=== PATIENT | female | born 1990 | race American Indian/Alaskan Native ===

== ENCOUNTER 2020-10-21 17:36 | Outpatient (CLI) | payer MEDICAID ==
[2020-10-21 18:22] LABS: Bacteria,Urine 4+ /HPF (Negative); Bilirubin,Urine NEG (Negative); Blood,Urine NEG (Negative); Color,Urine Yellow (Yellow); Mucus,Urine 2+ /HPF
[2020-10-21] MEDS ORDERED: LACTATED RINGERS 500 ML IV ONE (19:05)
[2020-10-21 19:06] LABS: Hematocrit 32.6 % (30.3-42.9); Hemoglobin 10.7 gm/dl (10.1-14.3); Mean Corpuscular HGB Conc 33 % (30-34); Mean Corpuscular Volume 83 fl (79-97); Platelet Count 208 K/mm3 (140-440); Red Blood Count 3.93 M/mm3 (3.65-5.03); Red Cell Distribution Width 15.1 % (13.2-15.2)
[2020-10-21 19:28] LABS: Alanine Aminotransferase 9 units/L (7-56); Uric Acid 4.3 mg/dL (3.5-7.6)
[2020-10-21 20:00] VITALS: BP 129/73
[2020-10-21] MEDS ORDERED: ceFAZolin/Water 2 GM/20 ML 2 GM/20 ML SYRINGE IV SCH (21:00)
== END 2020-10-21 20:19 | disposition home or self-care (01) ==
LOC: APU 17:36 → TRG 17:36
PROVIDERS: ATTEND Obstetrics & Gynecology
DX: O26.893 Other specified pregnancy related conditions, third trimester (principal); R03.0 Elevated blood-pressure reading, without diagnosis of hypertension; O47.1 False labor at or after 37 completed weeks of gestation; Z3A.39 39 weeks gestation of pregnancy; Z87.891 Personal history of nicotine dependence
CPT/HCPCS: 36415; 59025; 81001; 82565; 83615; 84450; 84460; 84550; 85027; 96365; J0690; 96360

== ENCOUNTER 2020-10-23 05:33 | Inpatient (IN) | payer MEDICAID ==
[~2020-10-23 05:33] MED LIST: OXYTOCIN DRIP 30 UNITS/500 ML BAG IV SCH
[2020-10-23] MEDS ORDERED: FAMOTIDINE 20 MG/2 ML INJ IV ONE (05:40)
[2020-10-23] MEDS ORDERED: BICITRA ORAL LIQD 30ML PO ONE (05:40)
[2020-10-23] MEDS ORDERED: METOCLOPRAMIDE 10 MG/2 ML INJ IV ONE (05:40)
[2020-10-23] MEDS: LACTATED RINGERS 1,000 ML IV SCH ×2 (06:00→07:43)
[2020-10-23 06:45] LABS: Basophils # (Auto) 0.1 K/mm3 (0.0-0.1); Basophils % (Auto) 0.9 % (0.0-1.8); Eosinophils # (Auto) 0.2 K/mm3 (0.0-0.4); Eosinophils % (Auto) 1.6 % (0.0-4.3); Hematocrit 29.8 % (30.3-42.9); Hemoglobin 10.1 gm/dl (10.1-14.3); Lymphocytes # (Auto) 2.5 K/mm3 (1.2-5.4); Lymphocytes % (Auto) 24.6 % (13.4-35.0); Mean Corpuscular HGB Conc 34 % (30-34); Mean Corpuscular Volume 81 fl (79-97); Monocytes # (Auto) 1.1 K/mm3 (0.0-0.8); Monocytes % (Auto) 10.7 % (0.0-7.3); Platelet Count 182 K/mm3 (140-440); Red Blood Count 3.67 M/mm3 (3.65-5.03); Red Cell Distribution Width 15.1 % (13.2-15.2)
[2020-10-23] MEDS ORDERED: ceFAZolin/Water 2 GM/20 ML 0 GM/0 ML SYRINGE IV ONE (07:11)
--- NOTE | 2020-10-23 07:22 | Anesthesia Day of Surgery ---
Anesthesia Day of Surgery - Day of Surgery Patient Examined: Yes Patient H&P Reviewed: Yes Patient is NPO: Yes Beta Blockers: No Cardiac Clearance: No Pulmonary Clearance: No Sharif's Test: N/A
--- NOTE | 2020-10-23 07:24 | Anesthesia Consultation ---
Anesthesia Consult and Med Hx Date of service: 10/23/20 - Airway Anesthetic Teeth Evaluation: Poor ROM Head & Neck: Adequate Mental/Hyoid Distance: Adequate Mallampati Class: Class III Intubation Access Assessment: Possibly Difficult - Pulmonary Exam CTA: Yes - Cardiac Exam Cardiac Exam: RRR - Pre-Operative Health Status ASA Pre-Surgery Classification: ASA3 Proposed Anesthetic Plan: Spinal - Pulmonary Hx Smoking: Yes (stop 2019) Hx Asthma: No Hx Respiratory Symptoms: No SOB: No COPD: No Home Oxygen Therapy: No Hx Pneumonia: No Hx Sleep Apnea: No - Cardiovascular System Hx Hypertension: No (had one episode of increased B/P ) Hx Coronary Artery Disease: No Hx Heart Attack/AMI: No Hx Angina: No Hx Percutaneous Transluminal Coronary Angioplasty (PTCA): No Hx Cardia Arrhythmia: No Hx Pacemaker: No Hx Internal Defibrillator: No Hx Valvular Heart Disease: No Hx Heart Murmur: No Hx Peripheral Vascular Disease: No - Central Nervous System Hx Neuromuscular Disorder: No Hx Seizures: No CVA: No Hx Back Pain: Yes Hx Psychiatric Problems: No - Gastrointestinal Hx Ulcer: No Hx Gastroesophageal Reflux Disease: Yes - Endocrine Hx Renal Disease: No Hx End Stage Renal Disease: No Hx Cirrhosis: No Hx Liver Disease: No Hx Insulin Dependent Diabetes: No Hx Non-Insulin Dependent Diabetes: No Hx Thyroid Disease: No Hx Hypothyroidism: No Hx Hyperthyroidism: No - Hematic Hx Anemia: No Hx Sickle Cell Disease: No - Other Systems Hx Alcohol Use: No Hx Substance Use: No Hx Cancer: No Hx Obesity: Yes (BMI 57)
--- NOTE | 2020-10-23 07:38 | History and Physical Report ---
History of Present Illness Date of examination: 10/23/20 Date of admission: 10/23/20 05:33 Chief complaint: scheduled section History of present illness: Pt is a 29 year old -[place] female NI 10/28/20 at 39w2d who presents for scheduled section secondary to prior x 1. She reports irregular contractions and denies vaginal bleeding and leakage of fluid. She has had limited care at [facility] since 22w[facility] complicated by morbid obesity BMI 57, 2 vessel umbilical cord, insufficient care. She is GBS Negative. Past History Past Medical History: other (Morbid Obesity ) Past Surgical History: section (2014) Family/Genetic History: none Social history: no significant social history - Obstetrical History Expected Date of Delivery: 10/28/20 Actual Gestation: 39 Week(s) 2 Day(s) : 3 Para: 1 Hx # Term Pregnancies: 1 Number of Pregnancies: 0 Spontaneous Abortions: 0 Induced : 1 Number of Living Children: 1 Medications and Allergies Allergies Allergy/AdvReac Type Severity Reaction Status Date / Time No Known Allergies Allergy Verified 10/21/20 18:04 Active Meds: Active Medications Hydromorphone HCl (Hydromorphone 1 Mg/1 Ml Inj) 0.5 mg IV Q5M PRN PRN Reason: BREAK Lactated Ringer's (Lactated Ringers) 1,000 mls @ 2,250 mls/hr IV PREOP JOSIE Stop: 10/24/20 05:27 Last Admin: 10/23/20 06:00 Dose: 2,250 mls/hr Documented by: Oxytocin/Sodium Chloride (Pitocin/Ns 30 Unit/500ml) 30 units in 500 mls @ 0 mls/hr IV TITR JOSIE; Protocol Cefazolin Sodium 3 gm/ Sodium (Chloride) 100 mls @ 100 mls/30 min IV PREOP NR; Protocol Stop: 10/23/20 23:59 Naloxone HCl (Naloxone 0.4 Mg/1 Ml Inj) 0.2 mg IV Q2MIN PRN PRN Reason: Res Rate </= 8 or 02 SAT < 92% Ondansetron HCl (Ondansetron 4 Mg/2 Ml Inj) 4 mg IV Q8H PRN PRN Reason: Nausea And Vomiting Sodium Chloride (Sodium Chloride 0.9% 10 Ml Flush Syringe) 10 ml IV PRN NR Review of Systems All systems: negative - Vital Signs Vital signs: Vital Signs Pulse BP 105 H 137/76 10/23/20 07:04 10/23/20 07:04 Temp Pulse Resp BP Pulse Ox 98.4 F 105 H 18 137/76 10/23/20 07:14 10/23/20 07:04 10/23/20 07:14 10/23/20 07:04 - Physical Exam Breasts: Positive: deferred Abdomen: Positive: soft (obese, gravid ) Uterus: Positive: enlarged (gravid ) Extremities: Positive: edema (trace ) - Obstetrical FHR: auscultation normal Uterine Contraction Monitor Mode: External Uterine Contraction Pattern: Irregular Uterine Tone Measurement Phase: Resting Results Result Diagrams: 10/23/20 06:35 Abnormal lab results 10/23/20 Range/Units 06:35 Hct 29.8 L (30.3-42.9) % [place] % (Auto) 10.7 H (0.0-7.3) % [place] # (Auto) 1.1 H (0.0-0.8) K/mm3 All other labs normal. Assessment and Plan A: IUP at 39w2d Previous section x 1 Morbid Obesity Two Vessel Cord Limited Care GBS Negative P: Proceed with repeat section and other indicated procedures
[2020-10-23] MEDS ORDERED: ONDANSETRON 4 MG/2 ML INJ ONE (07:39)
[2020-10-23] MEDS ORDERED: NALOXONE 0.4 MG/1 ML INJ IV PRN ×2 (08:00→11:00)
[2020-10-23] MEDS ORDERED: miSOPROStol 200 MCG TAB PR SCH (08:00)
[2020-10-23] MEDS ORDERED: ONDANSETRON 4 MG/2 ML INJ IV PRN ×2 (08:00→12:00)
[2020-10-23] MEDS ORDERED: METHYLERGONOVINE MALEATE 0.2 MG/ML VIAL IM SCH (08:00)
[2020-10-23] MEDS ORDERED: HYDROmorphone 1 MG/1 ML INJ IV PRN (08:00)
[2020-10-23] MEDS ORDERED: ceFAZolin/STERILE WATER 2 GM/20 ML SYRINGE IV ONE (09:10)
[2020-10-23] MEDS ORDERED: BUPIVACAINE/PF (0.5%) 5 MG/1 ML 30 ML VIAL INFILTRATI ONE (09:33)
[2020-10-23] MEDS ORDERED: dexAMETHasone 20 MG/5 ML VIAL ONE (09:33)
[2020-10-23] MEDS ORDERED: KETOROLAC 30 MG/1 ML INJ ONE (09:34)
--- NOTE | 2020-10-23 10:34 | Procedure Note ---
OB Delivery Note - Delivery Date of Delivery: 10/23/20 Surgeon: DOV EVANS Estimated blood loss: other (800 mL) - Section Preop diagnosis: repeat Postop diagnosis: same section procedure: section, repeat low transverse Disposition: PACU Complications: none, uterine atony Narrative: Please see delivery note - A at 1 minute: 8 at 5 minutes: 9 Infant Gender: Male (3936g (8lb 10oz) @ 0925 am)
--- NOTE | 2020-10-23 10:42 | Operative Report ---
Operative Report Operative Report: Date of procedure: October 23, 2020 Preoperative diagnosis: 1) IUP at 39w2d 2) Previous x 1 3) Morbid O besity Postoperative diagnosis: Same 4) Uterine Atony Procedure: Repeat low transverse section Surgeon: Liz Kruse M.D. Anesthesia: Regional Findings: 1) Viable male , Apgars 8 and 9, weight 3936 g, (8 lb 10 oz) in cephalic presentation. Nuchal cord x 1 2) Normal-appearing uterus ovaries and tubes Estimated blood loss: 800 mL IV fluids:1100 mL Urine output: 150 mL, clear at the end of the procedure Drains: Hernandez to gravity Medications: Methergine 0.2 mg IM, Misoprostol 800 mcg per rectum Specimens: Placenta to pathology Complications:None. Counts correct x 3 Disposition: Stable to PACU Indication for procedure: Pt is a 29 year old NI 10/28/20 at 39w2d presents for scheduled section secondary to prior section x 1. Operation in detail: After the risks, benefits, alternatives and complications were explained to the patient she gave informed consent for the procedure. She was subsequently taken to the operating room where regional anesthesia was noted to be adequate. She was placed in the dorsal supine position with leftward tilt and prepped and draped in a normal sterile fashion. heart tones were noted prior to incision. A timeout was performed. A Pfannenstiel skin incision was made with the knife and carried down to the layer of the fascia with the Bovie. The fascia was incised in the midline and the fascial incision was extended bilaterally with the Bovie. The fascial incision was then stretched. The rectus muscles were then in the midline and partially transected for adequate visualization. The peritoneum was then entered bluntly. The peritoneal incision was extended with good visualization of the bladder. The peritoneal incision was then stretched. An Hira retractor was placed. The bladder blade was then placed. The vesicouterine peritoneum was grasped with smooth pick ups and incised with Metzenbaum scissors . A bladder flap was then created digitally and the bladder blade was replaced. A transverse incision was made in the lower uterine segment with a knife and extended bilaterally with the bandage scissors. Amniotomy was performed with egress of clear fluid. head delivered with a Kiwi vacuum with one pull, no pop offs, followed by shoulders and body. bulb suctioned at delivery. Cord clamped and cut. handed to NICU staff in attendance. Cord blood was collected. The placenta was then delivered manually. The uterus was cleared of all clots and debris. The hysterotomy was then reapproximated with 0 Vicryl in a running locked fashion. A second layer of the same suture was used in imbricating fashion. An additional figure of eight of 0 Monocryl was placed at the right apex of the hysterotomy. The hysterotomy was inspected and hemostasis was noted. The gutters were irrigated and cleared of all clots and debris. The hysterotomy was again inspected and noted to be hemostatic. Surgicel was placed over the hysterotomy. The Hira retractor was removed. The peritoneum was reapproximated with 0 Monocryl in a running fashion incorporating the rectus muscles. Surgicel was placed over the rectus muscles. The fascia was reapproximated with 0 Vicryl in a running fashion. The subcutaneous tissue was reapproximated with 2-0 Vicryl in a running fashion. The skin was reapproximated with 4-0 Vicryl in a subcuticular fashion. The incision was then covered with steri strips and a pressure dressing. The procedure was then ended. The patient tolerated the procedure well and was taken to the PACU in stable condition. All instrument, lap, and needle counts were correct 3.
[2020-10-23] MEDS ORDERED: MORPHINE 2 MG/1 ML INJ IV PRN (11:00)
[2020-10-23] MEDS ORDERED: OXYTOCIN DRIP 30 UNITS/500 ML BAG IV SCH (11:00)
[2020-10-23] MEDS ORDERED: LANOLIN/ZINC/DIMETHICONE (LANSINOH) 7 GM TP PRN (11:00)
[2020-10-23] MEDS ORDERED: IBUPROFEN 800 MG TAB PO PRN (11:00)
[2020-10-23] MEDS ORDERED: ACETAMINOPHEN 325 MG TAB PO PRN (11:00)
[2020-10-23] MEDS ORDERED: KETOROLAC 30 MG/1 ML INJ IV SCH (11:00)
[2020-10-23] MEDS ORDERED: MORPHINE 4 MG/1 ML INJ IV PRN (11:00)
[2020-10-23] MEDS ORDERED: WITCH HAZEL/ GLYCERIN PAD TP PRN (11:00)
--- NOTE | 2020-10-23 11:09 | Progress Note ---
Spinal Anesthesia Block - Spinal Anesthesia Block Start Time: 08:05 Stop Time: 08:42 Performed by:: BRANDI PURI Procedure: Patient IDed, H&P reviewed, all questions and concerns were answered, and consent was signed. Timeout was performed. Patient in sitting position. Procedure was stopped multiple time secondary to patient feeling anxious. Verbal reassurance given by me, Dr. Kruse and the nursing staff. Sterile prep and drape was performed. [5] ml of 1% lidocaine skin wheal at L[3]- L [4]. 18- gauge Touhy epidural needle was advanced to loss of resistance with air technique to 9.5cm. Negative CSF negative blood via Tuohy needle. #27g Spinal needle clear, free flowing CSF, Pecedex 10 mcg and 0.75% Bupicacaine 12mg. Epidural catheter advanced to [12] centimeters. [negative] Aspiration [negative] test dose. Sterile dressing applied. Patient tolerated procedure.
--- NOTE | 2020-10-23 11:11 | Progress Note ---
Objective - Constitutional Vitals: Vital Signs - 12hr 10/23/20 10/23/20 07:04 07:14 Temperature 98.4 F Pulse Rate 105 H Respiratory 18 Rate Blood Pressure 137/76 - Labs CBC & Chem 7: 10/23/20 06:35 Labs: Abnormal lab results 10/23/20 Range/Units 06:35 Hct 29.8 L (30.3-42.9) % [place] % (Auto) 10.7 H (0.0-7.3) % [place] # (Auto) 1.1 H (0.0-0.8) K/mm3 Regional Anesthesia Block - Regional Anesthesia Block Start Time: 10:32 Stop Time: 10:39 Performed By:: BRANDI PURI Procedure: Patient consented for TAP block for post surgical pain management. Patient i dentified, monitors placed, and time out performed. TAP identified bilaterally via ultrasound. Skin prepped bilaterally with [chlorhexidine] and [22g stimuplex] needle advanced to the TAP. [Marcaine 0.22% 35ml] injected under ultrasound guidance on the [left] side. [Marcaine 0.22% 35ml] injected under ultrasound guidance on the [right] side. Negative aspiration every 5mL, No change in heart rate or rhythm. Patient tolerated the procedure well. No apparent complications seen.
[2020-10-23] MEDS ORDERED: SIMETHICONE 80 MG CHEW TAB PO PRN (12:00)
[2020-10-23] MEDS ORDERED: ceFAZolin/NS 1 GM/50 ML 1 GM/50 ML BAG IV SCH ×2 (12:00→23:30)
[2020-10-23] MEDS: KETOROLAC 30 MG/1 ML INJ IV SCH ×2 (16:50→23:26)
[2020-10-23] MEDS: D5W/LACTATED RINGERS 1,000 ML IV SCH (18:44)
[2020-10-23] MEDS: oxyCODONE /ACETAMINOPHEN 5-325MG TAB PO PRN (20:01)
[2020-10-23] MEDS ORDERED: MAGNESIUM HYDROXIDE (MOM) ORAL LIQD UDC PO PRN (22:00)
[2020-10-24 00:04] LABS: Hematocrit 29.8 % (30.3-42.9); Hemoglobin 9.6 gm/dl (10.1-14.3)
[2020-10-24] MEDS: D5W/LACTATED RINGERS 1,000 ML IV SCH (02:10)
[2020-10-24] MEDS: oxyCODONE /ACETAMINOPHEN 5-325MG TAB PO PRN ×3 (02:14→21:06)
[2020-10-24] MEDS: KETOROLAC 30 MG/1 ML INJ IV SCH ×2 (05:35→16:42)
[2020-10-24] MEDS ORDERED: TETANUS,DIPH,PERTUSS(ACELL) VACCINE 0.5 ML SYRINGE IM ONE (06:00)
--- NOTE | 2020-10-24 07:57 | Progress Note ---
Assessment and Plan - Patient Problems (1) delivery delivered Current Visit: Yes Status: Acute Plan to address problem: routine postop care Subjective - Subjective Date of service: 10/24/20 Interval history: Patient has not voided yet. She is tolerating clear diet. Pain well controlled Patient reports: appetite normal, voiding normally, pain well controlled : doing well Objective - Vital Signs Latest vital signs: Vital Signs Temp Pulse Resp BP BP Pulse Ox 10/24/20 00:00 98.4 F 69 16 106/79 10/23/20 16:25 98.2 F 88 18 131/75 99 10/23/20 12:20 98 F 77 18 127/76 99 10/23/20 11:46 98 F 87 116/60 98 10/23/20 11:40 89 123/70 100 10/23/20 11:35 88 115/74 98 10/23/20 11:30 88 111/59 98 10/23/20 11:20 88 132/72 98 10/23/20 11:15 88 134/83 98 10/23/20 10:40 88 99/41 98 10/23/20 10:35 92 H 15 107/38 100 10/23/20 10:30 97.5 F L 92 H 15 106/43 100 Intake and Output 10/23/20 10/24/20 10/24/20 22:59 06:59 14:59 Intake Total 200 1229.167 Output Total 300 1200 Balance -100 29.167 Intake: IV 929.167 D5lr 1,000 ml @ 125 mls/ 929.167 hr IV DIRECT JOSIE Rx#: [id number] Oral 200 Intake, Free Water 300 Output: Urine 300 1200 Indwelling Catheter 300 600 Uretheral (Hernandez) 600 Other: Total, Intake Amount 200 Total, Output Amount 300 600 - Labs Labs: Abnormal lab results 10/23/20 Range/Units 23:50 Hgb 9.6 L (10.1-14.3) gm/dl Hct 29.8 L (30.3-42.9) %
[2020-10-24] MEDS ORDERED: MEASLES, MUMPS & RUBELLA 12,500 UNIT/0.5 ML VACCINE SUB-Q ONE (08:00)
[2020-10-24] MEDS: FERROUS SULFATE 325 MG TAB PO SCH (10:16)
--- NOTE | 2020-10-24 16:05 | Post Anesthesia Evaluation ---
- Post Anesthesia Evaluation Patient Participated: Yes Airway Patent: Yes Stable Respiratory Function: Yes Nausea/Vomiting: No Temp > 96.8F: Yes Pain Manageable: Yes Adequeate Hydration: Yes Anesthesia Complications: No Block Receding Appropriately: Yes Patient on Ventilator: No
[2020-10-24] MEDS ORDERED: KETOROLAC 30 MG/1 ML INJ ONE (16:42)
[2020-10-25] MEDS: oxyCODONE /ACETAMINOPHEN 5-325MG TAB PO PRN ×3 (03:59→13:45)
[2020-10-25] MEDS: FERROUS SULFATE 325 MG TAB PO SCH (08:05)
--- NOTE | 2020-10-25 08:13 | Progress Note ---
Assessment and Plan - Patient Problems (1) delivery delivered Current Visit: Yes Status: Acute Plan to address problem: patient doing well Subjective - Subjective Date of service: 10/25/20 Interval history: Patient without complaints. Tolerating regular diet Patient reports: appetite normal, voiding normally, pain well controlled [place]: doing well Objective - Vital Signs Latest vital signs: Vital Signs Temp Pulse Resp BP BP Pulse Ox 10/25/20 03:59 18 10/25/20 00:53 97.9 F 97 H 18 124/78 100 10/24/20 21:06 20 10/24/20 16:20 98.1 F 98 H 18 134/71 100 Intake and Output 10/24/20 10/25/20 10/25/20 22:59 06:59 14:59 Intake Total 240 Output Total 250 Balance -250 240 Intake: Intake, Free Water 240 Output: Urine 250 Void 250 Other: Total, Output Amount 250 # Voids Void 1 3 - Exam Incision: Present: dressed
--- NOTE | 2020-10-25 08:15 | Discharge Summary ---
Providers - Providers Date of Admission: 10/23/20 05:33 Date of discharge: 10/25/20 Attending physician: IDRIS CRISTOBAL 10/23/20 10:[address] Researcher [CONS] Routine Reason For Exam: Primary care physician: IDRIS CRISTOBAL Hospitalization Reason for admission: section Delivery: Procedure: section, repeat low transverse Incision: normal Discharge diagnosis: IUP at term delivered Hospital course: Patient admitted for repeat delivery. See op note. Postop uncomplicated Condition at discharge: Good Disposition: DC-01 TO HOME OR SELFCARE - Discharge Diagnoses (1) delivery delivered Status: Acute Plan - Discharge Medications Prescriptions: Ibuprofen [Motrin] 800 mg PO Q8HR PRN #60 tablet PRN Reason: Pain , Severe (7-10) oxyCODONE /ACETAMINOPHEN [Percocet 5/325] 1 tab PO Q6HR PRN #30 tablet PRN Reason: Pain - Provider Discharge Summary Activity: no sex for 6 weeks, no heavy lifting 4 weeks, no strenuous exercise Diet: routine Instructions: routine Additional instructions: [] Smoking cessation referral if applicable(refer to patient education folder for contact #) [] Refer to [facility] Booklet Call your doctor immediately for: * Fever > 100.5 * Heavy vaginal bleeding ( >1 pad per hour) * Severe persistent headache * Shortness of breath * Reddened, hot, painful area to leg or breast * Drainage or odor from incision. * Keep incision clean and dry at all times and follow doctor's instructions regarding bathing/showering schedule postop visit in 2 weeks - Follow up plan
[2020-10-25 13:41] VITALS: BP 129/71
== END 2020-10-25 14:50 | disposition home or self-care (01) | DRG 766 ==
LOC: APU 05:33 → OB 12:24
PROVIDERS: ADMIT Obstetrics & Gynecology; ATTEND Obstetrics & Gynecology
PROC: 10D00Z1 Extraction of Products of Conception, Low, Open Approach (ICD-10-PCS; principal; 2020-10-23)
PROC: 3E0T3BZ Introduction of Anesthetic Agent into Peripheral Nerves and Plexi, Percutaneous Approach (ICD-10-PCS; 2020-10-23)
PROC: 3E0234Z Introduction of Serum, Toxoid and Vaccine into Muscle, Percutaneous Approach (ICD-10-PCS; 2020-10-24)
DX: O34.211 Maternal care for low transverse scar from previous cesarean delivery (principal); Z37.0 Single live birth; Z3A.39 39 weeks gestation of pregnancy; O99.214 Obesity complicating childbirth; O99.62 Diseases of the digestive system complicating childbirth; Z23 Encounter for immunization; Z87.891 Personal history of nicotine dependence; E66.01 Morbid (severe) obesity due to excess calories; O62.2 Other uterine inertia; O69.81X0 Labor and delivery complicated by cord around neck, without compression, not applicable or unspecified; K21.9 Gastro-esophageal reflux disease without esophagitis
CPT/HCPCS: 36415; 59025; 81001; 82565; 83615; 84450; 84460; 84550; 85014; 85018; 85025; 85027; 86850; 86900; 86901; 88307; 90471; 90715; 96360; 96365; 99211; G0378; G0463; J0690; J1100; J1885; J2270; J2405; J2765; J3490; J7120; J7121; U0003